=== PATIENT | female | born 1990 | race African-American/Black ===

== ENCOUNTER 2019-07-04 07:12 | Inpatient (IN) | payer MEDICAID, OTHER, SELFPAY ==
[2019-07-04] MEDS ORDERED: LORazepam 2 MG/ML VIAL (J2060) As Ordered ONE (07:28)
[2019-07-04] MEDS ORDERED: NS 1,000 ML IV ONE ×3 (07:30→10:45)
[2019-07-04] MEDS ORDERED: HALOPERIDOL 5 MG/ML VIAL (J1630) IM ONE (07:30)
[2019-07-04] MEDS ORDERED: diphenhydrAMINE INJ 50MG/ML VIAL (J1200) IM ONE (07:30)
[2019-07-04] MEDS ORDERED: LORazepam 2 MG/ML VIAL (J2060) IV STA (07:35)
--- NOTE | 2019-07-04 07:41 | ED PDOC ---
Post-Departure Follow-Up ED online community manager was directed by me to break the glass on this critical patient who required immediate medical intervention and was unable to provide me with any history or consent for release Leda Curtis MD Jul 04, 2019 07:41
[2019-07-04 07:55] LABS: VENOUS BASE EXCESS -9.1 (-2.0-2.0); VENOUS HCO3 22.1 MEQ/L (23.0-27.0); VENOUS O2 SATURATION 79.9 % (60.0-80.0); VENOUS PARTIAL PRESSURE CO2 73.7 mmHg (38.0-50.0); VENOUS PARTIAL PRESSURE O2 58.9 mmHg (30.0-50.0); VENOUS PH 7.094 UNITS (7.330-7.430); VENOUS STANDARD HCO3 16.9 MEQ/L; VENOUS TOTAL CO2 24.3 MEQ/L (24.0-28.0)
[2019-07-04 07:58] LABS: HCG, SERUM QUALITATIVE NEGATIVE (NEGATIVE)
[2019-07-04 08:00] LABS: BASO % 0.4 % (0.0-1.0); EOS # 0.1 10^3/uL (0.0-0.5); EOS % 1.1 % (0.0-3.0); HEMATOCRIT 38.3 % (36.0-47.0); HEMOGLOBIN 11.6 g/dl (12.0-15.5); LYMPH # 3.9 10^3/uL (1.5-5.0); MEAN CORPUSCULAR HEMOGLOBIN 27.6 pg (27.0-33.0); MEAN CORPUSCULAR HGB CONC 30.3 g/dl (32.0-36.5); MEAN CORPUSCULAR VOLUME 91.2 fl (80.0-96.0); MONO # 1.4 10^3/uL (0.0-0.8); MONO % 12.1 % (0.0-5.0); NEUTROPHILS # 5.9 10^3/uL (1.5-8.5); NEUTROPHILS % 52.2 % (36.0-66.0); PLATELET COUNT, AUTOMATED 194 10^3/uL (150-450); WHITE BLOOD COUNT 11.3 10^3/uL (4.0-10.0)
[2019-07-04 08:14] LABS: ABG BASE EXCESS -1.7 (-2.0-2.0); ABG HCO3 24.8 MEQ/L (22.0-26.0); ABG PARTIAL PRESSURE CO2 49.5 mmHg (35.0-45.0); ABG PARTIAL PRESSURE O2 184.6 mmHg (75.0-100.0); ABG STANDARD HCO3 23.1 MEQ/L (22.0-26.0); ABG TOTAL CO2 26.3 MEQ/L (22.0-29.0); ABG pH (ARTERIAL) 7.318 UNITS (7.350-7.450)
[2019-07-04 08:18] LABS: ACETAMINOPHEN LEVEL < 2.0 UG/ML (10.0-30.0); ALBUMIN 4.7 GM/DL (3.2-5.2); ALT/SGPT 184 U/L (12-78); BILIRUBIN,DIRECT 0.2 MG/DL (0.0-0.2); BILIRUBIN,TOTAL 0.8 MG/DL (0.2-1.0); BLOOD UREA NITROGEN 23 MG/DL (7-18); CALCIUM LEVEL 9.8 MG/DL (8.5-10.1); CARBON DIOXIDE LEVEL 23 MEQ/L (21-32); CHLORIDE LEVEL 101 MEQ/L (98-107); CPK CREATINE PHOSPHOKINASE 655 U/L (26-192); CREATININE FOR GFR 1.24 MG/DL (0.55-1.30); ETHYL ALCOHOL (ETHANOL) < 0.003 % (0.000-0.010); GLOMERULAR FILTRATION RATE 55.2 (>60); GLUCOSE, FASTING 89 MG/DL (70-100); POTASSIUM SERUM 4.2 MEQ/L (3.5-5.1); SALICYLATE LEVEL 1.9 MG/DL (5.0-30.0); SODIUM LEVEL 140 MEQ/L (136-145); TOTAL PROTEIN 9.6 GM/DL (6.4-8.2)
[2019-07-04 08:27] LABS: OSMOLALITY SERUM 303 MOSM/KG (275-295)
--- NOTE | 2019-07-04 09:01 | REP ---
CT of the brain without IV contrast for altered mental status: There are no comparisons. There is no acute hemorrhage. There is no edema, mass effect or midline shift. Ventricles are normal size. The cortical stripe is unremarkable. The visualized paranasal sinuses and mastoid air cells are clear. Impression: Negative CT of the brain without IV contrast. Electronically Signed by Gonsalo Bermudez MD 07/04/2019 08:53 A
--- NOTE | 2019-07-04 11:14 | REP ---
Portable chest, 10:56 a.m., single frontal view with the patient supine: The patient is rotated. The visualized lung stoddard are clear. Cardiac size is normal. The patt, mediastinum, skeletal structures are. Impression: No acute cardiopulmonary findings. Patient rotated. Electronically Signed by Gonsalo Bermudez MD 07/04/2019 11:06 A
[2019-07-04 12:14] LABS: AMPHETAMINES LEVEL URINE NEGATIVE (NEGATIVE); BARBITURATES URINE NEGATIVE (NEGATIVE); BENZODIAZEPINES URINE NEGATIVE (NEGATIVE); CANNABINOIDS URINE NEGATIVE (NEGATIVE); COCAINE METABOLITE URINE NEGATIVE (NEGATIVE); METHADONE URINE NEGATIVE (NEGATIVE); OPIATES URINE NEGATIVE (NEGATIVE); PHENCYCLIDINE URINE NEGATIVE (NEGATIVE)
[2019-07-04] MEDS ORDERED: MIRT1TAB16 PO (12:20)
[2019-07-04] MEDS ORDERED: HALOPERIDOL 5 MG/ML VIAL (J1630) IV PRN (15:00)
[2019-07-04] MEDS ORDERED: diphenhydrAMINE INJ 50MG/ML VIAL (J1200) IV PRN (15:00)
[2019-07-04] MEDS: NS 1,000 ML IV SCH (15:46)
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
[2019-07-04] MEDS ORDERED: PANTOPRAZOLE 40MG INJ (PROTONIX) (C9113) IV SCH (18:00)
[2019-07-04 20:00] VITALS: BP 129/72
--- NOTE | 2019-07-04 20:28 | ECGEPIP ---
[facility] - ED Test Date: 2019-07-04 Pat Name: BINTA COON Department: Room: - Gender: Female Woods Laborer: vini : 1990 Requested By: Leda Curtis Order Number: [id number] Reading MD: Leda Curtis Measurements Intervals [place] Rate: 101 P: 64 DE: 122 QRS: 85 QRSD: 81 T: 33 QT: 342 QTc: 445 Interpretive Statements SINUS TACHYCARDIA POSSIBLE LEFT ATRIAL ENLARGEMENT SEPTAL MYOCARDIAL INFARCTION, PROBABLY OLD NSTTW abnormalities NO PRIOR Electronically Signed on 07-04-2019 20:28:18 EST by Leda Curtis
[2019-07-04 21:00] VITALS: BP 126/71
[2019-07-04 22:00] VITALS: BP 123/63
[2019-07-04 23:00] VITALS: BP 93/50
[2019-07-05] VITALS (8 sets, daily range): BP systolic 101–121; BP diastolic 51–66
[2019-07-05] MEDS: NS 1,000 ML IV SCH (01:00)
[2019-07-05 04:50] LABS: BASO % 0.4 % (0.0-1.0); EOS # 0.3 10^3/uL (0.0-0.5); EOS % 3.8 % (0.0-3.0); HEMATOCRIT 37.5 % (36.0-47.0); HEMOGLOBIN 11.5 g/dl (12.0-15.5); LYMPH # 2.1 10^3/uL (1.5-5.0); LYMPH % 28.4 % (24.0-44.0); MEAN CORPUSCULAR HEMOGLOBIN 27.3 pg (27.0-33.0); MEAN CORPUSCULAR HGB CONC 30.7 g/dl (32.0-36.5); MEAN CORPUSCULAR VOLUME 88.9 fl (80.0-96.0); MONO # 0.8 10^3/uL (0.0-0.8); MONO % 11.1 % (0.0-5.0); NEUTROPHILS # 4.1 10^3/uL (1.5-8.5); NEUTROPHILS % 56.2 % (36.0-66.0); PLATELET COUNT, AUTOMATED 275 10^3/uL (150-450); RED BLOOD COUNT 4.22 10^6/uL (4.00-5.40); WHITE BLOOD COUNT 7.3 10^3/uL (4.0-10.0)
[2019-07-05 07:31] LABS: BLOOD UREA NITROGEN 6 MG/DL (7-18); CALCIUM LEVEL 8.2 MG/DL (8.5-10.1); CARBON DIOXIDE LEVEL 26 MEQ/L (21-32); CHLORIDE LEVEL 110 MEQ/L (98-107); CREATININE FOR GFR 0.73 MG/DL (0.55-1.30); GLOMERULAR FILTRATION RATE > 60.0 (>60); GLUCOSE, FASTING 92 MG/DL (70-100); POTASSIUM SERUM 3.7 MEQ/L (3.5-5.1); SODIUM LEVEL 141 MEQ/L (136-145)
[2019-07-05] MEDS ORDERED: ENOXAPARIN 40 MG/0.4 ML SYRINGE (J1650) SC SCH (09:00)
[2019-07-05] MEDS ORDERED: PANTOPRAZOLE 40MG TAB (PROTONIX) PO SCH (09:00)
[2019-07-05 09:01] LABS: ALBUMIN 2.9 GM/DL (3.2-5.2); ALT/SGPT 116 U/L (12-78); BILIRUBIN,DIRECT 0.2 MG/DL (0.0-0.2); BILIRUBIN,TOTAL 0.8 MG/DL (0.2-1.0); TOTAL PROTEIN 6.1 GM/DL (6.4-8.2)
--- NOTE | 2019-07-05 09:53 | IPNPDOC ---
Subjective Date Seen The patient was seen on 07/05/19. Subjective Chief Complaint/HPI patient says the light is bothering her and that she is hungry. She says that she is depressed and has suicidal thoughta. She wants to go to a drug rehab. SHe expressed to the Nurse that she wanted to know about rehabs in [facility]. Objective Physical Examination General Exam: Positive: Alert, Cooperative, No Acute Distress, Other Eye Exam: Positive: Conjunctiva & lids normal; Negative: Sclera icteric ENT Exam: Positive: Atraumatic Neck Exam: Positive: Supple Chest Exam: Positive: Clear to auscultation, Normal air movement Heart Exam: Positive: Rate Normal, Regular Rhythm, Normal S1, Normal S2; Negative: Murmurs, Rubs Telemetry: Positive: No significant arrhythmia Abdomen Exam: Positive: Normal bowel sounds, Soft Extremity Exam: Positive: Normal pulses; Negative: Clubbing, Cyanosis, Edema Skin Exam: Positive: Nl turgor and temperature Psych Exam: Positive: Other Assessment /Plan Assessment Depression patient says she is depressed and has suicidal thoughts this morning. will place one on one sitter psych consult. Polysubstance use with aggressive behavior IV jodi and spice use. Had required physical and chemical restraints. Now alert oriented, cooperative Chemical restraints causing deep sedation respiratory failure with hypoxia and hypercarbia which is resolving did not require intubation but did require a nasal airway. Transaminitis will check hepatitis profile patient says she has been tested for HIV and hepatitis a week ago and was negative this is probably then due to rhabdomyolysis Mild rhabdomyolysis received 3 liters will continue on IVF Lacticacidosis repeat one normal Plan/VTE VTE Prophylaxis Ordered?: Yes VS, I&O, 24H, Fishbone Vital Signs/I&O Vital Signs Date Time Temp Pulse Resp B/P (MAP) Pulse Ox O2 Delivery O2 Flow Rate FiO2 07/05/19 08:00 98.7 74 18 121/57 (78) 94 Room Air 07/04/19 13:40 1.5 I&O- Last 24 Hours up to 6 AM 07/05/19 05:59 Intake Total 4100 ml Output Total 1600 ml Balance 2500 ml Laboratory Data 24H LABS Laboratory Tests 2 07/04/19 10:40: POC pH (Misc Panel) 7.296L, POC Base Excess (Misc Panel) 0.0, POC Saturated Percent O2 (Misc) 96, POC pO2 (Misc Panel) 91.0, POC pCO2 (Misc Panel) 55.0H, POC HCO3 (Misc Panel) 26.8H, POC Total CO2 (Misc Panel) 28.0H 07/04/19 11:35: Urine Opiates Screen NEGATIVE, Urine Methadone Screen NEGATIVE, Urine Barbiturates Screen NEGATIVE, Urine Phencyclidine Screen NEGATIVE, Urine Amphetamines Screen NEGATIVE, Urine Benzodiazepines Screen NEGATIVE, Urine Cocaine Metabolite Screen NEGATIVE, Urine Cannabinoids Screen NEGATIVE 07/04/19 15:07: Lactic Acid Followup at 4 Hours 0.6 07/05/19 04:36: Immature Granulocyte % (Auto) 0.1, Neutrophils (%) (Auto) 56.2, Lymphocytes (%) (Auto) 28.4, Monocytes (%) (Auto) 11.1H, Eosinophils (%) (Auto) 3.8H, Basophils (%) (Auto) 0.4, Neutrophils # (Auto) 4.1, Lymphocytes # (Auto) 2.1, Monocytes # (Auto) 0.8, Eosinophils # (Auto) 0.3, Basophils # (Auto) 0.0, Nucleated Red Blood Cells % (auto) 0.0, Anion Gap 5L, Glomerular Filtration Rate > 60.0, Calcium Level 8.2#L, Total Bilirubin 0.8, Direct Bilirubin 0.2, Aspartate Amino Transf (AST/SGOT) 104H, Alanine Aminotransferase (ALT/SGPT) 116H, Alkaline Phosphatase 68, Total Protein 6.1#L, Albumin 2.9#L, Albumin/Globulin Ratio 0.91L CBC/BMP Laboratory Tests 07/05/19 04:36 LUCAS TSANG MD Jul 05, 2019 09:53
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
[2019-07-05] MEDS ORDERED: PATIENT COMMENTS (23:18)
[2019-07-06] MEDS ORDERED: PANTOPRAZOLE 40MG TAB (PROTONIX) PO SCH (09:00)
[2019-07-07 11:03] LABS: HEPATITIS B SURFACE ANTIGEN NEGATIVE (NEGATIVE)
[2019-07-07 12:57] LABS: HEPATITIS C VIRUS ABY INDEX > 11.0 INDEX (<0.8)
[2019-07-10 00:06] LABS: MDPV Negative (NEGATIVE); MEPHEDRONE Negative (NEGATIVE); METHYLONE Negative (NEGATIVE)
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
== END 2019-07-05 21:55 | DRG 776 ==
LOC: M ED 07:12 → EDBD 07:12 → M ED INP 13:08 → ENRESERV 13:46 → M ICU 14:30
PROVIDERS: ADMIT Internal Medicine Nephrology; ATTEND Internal Medicine Nephrology
DX: F15.188 Other stimulant abuse with other stimulant-induced disorder (principal); J96.91 Respiratory failure, unspecified with hypoxia; J96.92 Respiratory failure, unspecified with hypercapnia; M62.82 Rhabdomyolysis; E87.2 Acidosis; R45.851 Suicidal ideations; F31.9 Bipolar disorder, unspecified; R74.0 Nonspecific elevation of levels of transaminase and lactic acid dehydrogenase [LDH]; Z79.899 Other long term (current) drug therapy; F12.188 Cannabis abuse with other cannabis-induced disorder

== ENCOUNTER 2019-07-05 20:54 | Inpatient (IN) | payer OTHER, SELFPAY ==
[~2019-07-05] VITALS: Ht 154.9 cm; Wt 57.0 kg
[~2019-07-05 20:54] MED LIST: MIRT1TAB16 PO
[2019-07-05] MEDS ORDERED: MAALOX 30 ML SUSP *UDC PO PRN (21:00)
[2019-07-05] MEDS ORDERED: MOM 30ML SUSPENSION UDC PO PRN (21:00)
[2019-07-05] MEDS ORDERED: ACETAMINOPHEN TAB 650MG DOSE (2X325MG) PO PRN (21:00)
[2019-07-05] MEDS ORDERED: NICOTINE 21MG/24HR 1 EA TRANSDERMAL TD PRN (21:00)
[2019-07-05] MEDS ORDERED: traZODone 50 MG TAB PO PRN (21:00)
[2019-07-05] MEDS ORDERED: OLANZapine ORAL DISINTEGRATING TAB 5MG PO PRN (22:00)
[2019-07-05 22:06] VITALS: BP 131/74
[2019-07-05] MEDS ORDERED: PATIENT COMMENTS (23:18)
[2019-07-06] VITALS (8 sets, daily range): BP systolic 95–117; BP diastolic 52–77
[2019-07-06] MEDS ORDERED: HALOPERIDOL 5 MG/ML VIAL (J1630) IM STA (11:21)
[2019-07-06] MEDS ORDERED: LORazepam 2 MG/ML VIAL (J2060) IM STA (11:21)
--- NOTE | 2019-07-06 20:38 | CR.PDOC ---
General Date of Consultation: Jul 06, 2019 Consultation REASON FOR CONSULTATION/CHIEF COMPLAINT: Physical evaluation HISTORY OF PRESENT ILLNESS: Patient denied any discussion today about her health, patient denied physical examination. I will follow patient tomorrow ALLERGIES: Please see below. HOME MEDICATIONS: Please see below. PAST MEDICAL HISTORY: 1. . 2. . PAST SURGICAL HISTORY: 1. 2. FAMILY HISTORY: Father: Mother: Siblings: Children: Hereditary Diseases: Unexpected deaths due to medical reasons: SOCIAL HISTORY: Marital status and/or living arrangements: Children: Employment: Tobacco use: ETOH: Illicit drug use: IV drug use: Other relevant social factors: REVIEW OF SYSTEMS: CONSTITUTIONAL: . HEENT: . CARDIOVASCULAR: . RESPIRATORY: . GENITOURINARY: . MUSCULOSKELETAL: . GASTROINTESTINAL: . SKIN: . NEUROLOGICAL: . PSYCHIATRIC: . ENDOCRINE: . HEMATOLOGIC/LYMPHATIC: . ALLERGIC/IMMUNOLOGIC: . PHYSICAL EXAMINATION: VITAL SIGNS: Please see below. GENERAL APPEARANCE: . HEENT: . RESPIRATORY: . CARDIOVASCULAR: . ABDOMEN: . EXTREMITIES: . NEUROLOGICAL: . PSYCHIATRIC: . LABORATORY DATA: Please see below. ASSESSMENT/PLAN: 1. . 2. . Vital Signs/I&O Vital Signs Date Time Temp Pulse Resp B/P (MAP) Pulse Ox O2 Delivery O2 Flow Rate FiO2 07/06/19 16:46 97.9 74 15 104/52 (69) 07/06/19 13:00 100 Room Air Allergies Coded Allergies: No Known Allergies (Unverified , 07/05/19) Home Medications Miscellaneous Medications [Patient Comments] , for , (Reported) PATIENT STATES SHE TAKES A SLEEPING MEDICATION HOWEVER HER PHARMACY VERIFIES THAT SHE HAS NO ACTIVE MEDICATIONS AT THIS TIME. LAST FILL ON ALL MEDICATIONS WAS 03/09/2019 JACK LARRY DO Jul 06, 2019 20:38
--- NOTE | 2019-07-07 09:00 | MHHPEPDOC ---
[facility] History & Physical History and Physical Inpatient Progress Note Poornima Stewart MRN: N/A Date of : N/A Date of Service: 07/07/2019 History of Present Illness A 29-year-old woman with the history of trauma who presents after becoming psychotic after taking Lakshmi. She has a notable history of substance use. She is brought out of an abundance of caution. Interval History Psychiatric symptoms today: The patient is met with today, she reports that she is doing well, does state that she finds the environment problematic with PTSD. Affective: The patient does report low mood, loss of interest. Psychotic: The patient denies Anxiety: The patient report trauma related triggers, difficulty being around others and hypervigilance. Misc: The patient reports improved sleep and eating. Group Attendance: Medication Side effects: See ROS below Behavioral problems/significant events overnight: tried to ellope in an intoxicated state. Staff Report: The patient has subsequently improved well since being admitted and has returned to an amenable state overnight. Review Of Systems GI: Denies Nausea, vomiting, or bowel changes Neuro: Denies dizziness, tremors Derm: Denies any rashes or pruritus : Denies any dysuria or urinary problems MSK: The patient reports some mild muscle tightness in her tongue after getting medications last night. Psychotherapy None on this visit. Vital Signs Reviewed. Mental Status Examination General: Well dressed with good hygiene Speech: Spontaneous and fluid Thought processes: Linear and logical MSK: Exhibit some mild muscle tightness in her upper extremities. No change in gait. Thought content: Future orientated Abstract reasoning, and computation: Intact Description of associations: Intact Description of abnormal or psychotic thoughts: Denies any suicidal or homicidal ideation. Denies any auditory or visual hallucinations. Does not appear to be responding to internal stimuli. Does not appear to be endorsing any bizarre or paranoid ideation. Judgment: fair Insight: fair Orientation: Alert and orientated 3 Cognition: Grossly normal Recent and remote memory: Intact Attention span and concentration: Intact Fund of knowledge: Adequate Mood: "okay" Affect: Euthymic with a full range Diagnoses PTSD, chronic. Hallucinogen use disorder, severe. Tobacco use disorder, severe. Assessment and Plan PTSD chronic: Start sertraline 25 mg daily. Discussed risks, benefits and potential side effects with patient as well as alternatives. Hallucinogen use disorder: Recommend rehab. Tobacco use disorder: Recommend nicotine replacement. EPS: We will treat with Ativan. Remove Zyprexa as likely unhelpful and contributing to some side effects. Disposition The patient will be discharged tomorrow as she has requested to go and does not meet involuntary criteria at this time. Time Spent 20 minutes. Sunday Vital Signs Vital Signs Date Time Temp Pulse Resp B/P (MAP) Pulse Ox O2 Delivery O2 Flow Rate FiO2 07/06/19 16:46 97.9 74 15 104/52 (69) 07/06/19 13:00 100 Room Air Medications Scheduled Sertraline HCl (Sertraline HCl) 25 Mg Tablet, 25 MG PO DAILY for mood Scheduled PRN Nicotine (Nicotine Patch) 21 Mg Patch.td24, 1 PATCH TD DAILY PRN for NICOTINE WITHDRAWL Allergies Coded Allergies: No Known Allergies (Unverified , 07/05/19) KENDY BLAIR DO Jul 07, 2019 09:00
[2019-07-07 14:00] VITALS: BP 138/98
[2019-07-07] MEDS ORDERED: SERTRALINE HCL 25 MG TABLET PO ONE (15:15)
[2019-07-07] MEDS ORDERED: LORazepam 0.5 MG TAB PO ONE (15:15)
--- NOTE | 2019-07-07 18:44 | MHIR ---
DATE: 07/06/2019 The patient did not respond to several directions after a "Code 25" was called, and remained aggressive and was placed in restraints. She was given Haldol 5 mg intramuscular, as well as Ativan 1 mg intramuscular. I saw her soon afterwards. She is in restraints, less agitated, and she is coherent. We will maintain restraints and monitor per protocol and have them removed as soon as is possible, after her safety and that of others is assessed.
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
[2019-07-08 06:08] VITALS: BP 115/85
[2019-07-08] MEDS ORDERED: SERTRALINE HCL 25 MG TABLET PO SCH (09:00)
[2019-07-08] MEDS ORDERED: SERT25TA21 PO (10:36)
[2019-07-08] MEDS ORDERED: NICO21PAT TD (10:36)
--- NOTE | 2019-07-08 10:40 | MHDSPDOC ---
[facility] Discharge Summary Discharge Summary DATE OF ADMISSION: Jul 05, 2019 at 21:39 DATE OF DISCHARGE: 07/10/19 Discharge Poornima Stewart MRN: N/A Date of : N/A Date of Service: 07/08/2019 Diagnoses PTSD, chronic. Hallucinogen use disorder, severe. Tobacco use disorder, severe. History of Present Illness A 29-year-old woman with the history of trauma who presents after becoming psychotic after taking Lakshmi. She has a notable history of substance use. She is brought out of an abundance of caution. Consultants Involved Hospitalist/PCP screening Treatment and Progress On The Unit Patient's admitted to the inpatient unit, subsequently or intoxication with Lakshmi and her conveyor man reveals that she is likely PTSD. She is treated with a low dose sertraline and supportive care for her intoxication. She improves and returns to a normal mental status after she returns to that, she elects to pursue outpatient addiction and a referral to a long-term rehab due to her difficulties with substance use. She has only one episode of difficulty on the unit when she presented intoxicated, attempting to however that was resolved the following morning. Discharge Assessment 29-year-old woman who presents psychotic after using Lakshmi. She improves without any major antipsychotics and reveals herself primarily to be ptsd. On the day of discharge she denies any suicidal or homicidal ideation, has been denying it through her admission. Patient has a normal mental status exam, calm, cooperat ronal and amenablamenable As far as recommendations, thustI feel she doesn't meet involuntary criteria in my opinion. She declines voluntary admission and must be discharged. Mental Status Examination General: Well dressed with good hygiene Speech: Spontaneous and fluid Thought processes: Linear and logical MSK: Smooth and coordinated gait, no signs of tremors or involuntary orofacial movements Thought content: Future orientated Abstract reasoning, and computation: Intact Description of associations: Intact Description of abnormal or psychotic thoughts: Denies any suicidal or homicidal ideation. Denies any auditory or visual hallucinations. Does not appear to be responding to internal stimuli. Does not appear to be endorsing any bizarre or paranoid ideation. Judgment: fair Insight: fair Orientation: Alert and orientated 3 Cognition: Grossly normal Recent and remote memory: Intact Attention span and concentration: Intact Fund of knowledge: Adequate Mood: "okay" Affect: Euthymic with a full range Follow Up The social work team worked during the predischarge meeting in order to evaluate for further issues of lethality address them fully before discharge. They worked on safety planning with the patient's family members in order to ensure that the patient will have a safe and effective discharge. Time Spent The amount of time spent in the coordination of care for this patient was approximately 40 minutes. Sunday Vital Signs/I&Os Vital Signs Date Time Temp Pulse Resp B/P (MAP) Pulse Ox O2 Delivery O2 Flow Rate FiO2 07/08/19 06:08 98.0 86 16 115/85 (95) 07/06/19 13:00 100 Room Air Medications Scheduled Sertraline HCl (Sertraline HCl) 25 Mg Tablet, 25 MG PO DAILY for mood for 7 Days, #7 Scheduled PRN Nicotine (Nicotine Patch) 21 Mg Patch.td24, 1 PATCH TD DAILY PRN for NICOTINE WITHDRAWL for 30 Days, #30 Allergies Coded Allergies: No Known Allergies (Unverified , 07/05/19) KENDY BLAIR DO Jul 08, 2019 10:40
== END 2019-07-08 12:55 | disposition home or self-care (01) | DRG 755 ==
LOC: M PSY 21:39
PROVIDERS: ADMIT Psychiatry & Neurology Psychiatry; ATTEND Psychiatry & Neurology Addiction Medicine
DX: F43.12 Post-traumatic stress disorder, chronic (principal); F16.20 Hallucinogen dependence, uncomplicated; F17.200 Nicotine dependence, unspecified, uncomplicated; F15.10 Other stimulant abuse, uncomplicated; F12.10 Cannabis abuse, uncomplicated; Z79.899 Other long term (current) drug therapy; R43.8 Other disturbances of smell and taste